=== PATIENT | female | born 1955 | race Caucasian/White ===

== ENCOUNTER 2018-08-11 09:33 | Emergency (ER) | payer BC | END 2018-08-11 10:14 | disposition home or self-care (01) | LOC: SCSER 09:33 | DX: J39.9 Disease of upper respiratory tract, unspecified (principal); F41.9 Anxiety disorder, unspecified; Z87.891 Personal history of nicotine dependence; Z79.899 Other long term (current) drug therapy | CPT/HCPCS: 99283 ==